=== PATIENT | female | born 1990 | race Caucasian/White ===

== ENCOUNTER 2016-09-23 13:30 | Emergency (ER) | payer OTHER, MEDICAID ==
[~2016-09-23] VITALS: Ht 177.8 cm; Wt 56.8 kg
[~2016-09-23 13:30] MED LIST: CEPH500C3 PO; ZOFR4TAB3 SL
[2016-09-23 13:35] VITALS: BP 128/72; PULSE 99; RESP 18; TEMP 98.7; O2SAT 100
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
[2016-09-23] MEDS ORDERED: KETOROLAC TROMETHAMINE 60 MG/2 ML (IM) VIAL IM ONE (15:30)
[2016-09-23] MEDS ORDERED: MOBI15TA PO (15:31)
[2016-09-23] MEDS ORDERED: ULTR50TA5 PO (15:31)
[2016-09-23] MEDS ORDERED: VIST25CA PO (15:31)
== END 2016-09-23 16:11 | disposition home or self-care (01) ==
LOC: NEPD 13:30
DX: S70.02XA Contusion of left hip, initial encounter (principal); S80.02XA Contusion of left knee, initial encounter; D64.9 Anemia, unspecified; K75.9 Inflammatory liver disease, unspecified; Z72.0 Tobacco use; V13.4XXA Pedal cycle driver injured in collision with car, pick-up truck or van in traffic accident, initial encounter
CPT/HCPCS: 71010; 73502; 73552; 73560; 96372; 99284; J1885; J3410